=== PATIENT | female | born 1965 | race Hispanic/Latino ===

== ENCOUNTER 2020-05-20 15:37 | Emergency (ER) | payer SELFPAY ==
--- NOTE | 2020-05-20 16:05 | ED.PDOC ---
History of Present Illness - General Chief Complaint: GI Problem Stated Complaint: Fever Time Seen by Provider: 05/20/20 16:05 Information Source: patient, RN notes reviewed, Vital Signs reviewed Exam Limitations: language barrier - History of Present Illness Initial Comments: This is a 54-year-old female with history of UTI, type 2 diabetes, presenting to the emergency department with fever and dysuria for the past 3 days. She denies any vomiting or diarrhea. She denies any Covid contacts. She denies any cough, runny nose, sore throat, chest pain, or shortness of breath. Abdominal Pain Onset Location: suprapubic Review of Systems - Review of Systems Constitutional: States: fever. Denies: chills EENTM: Denies: tearing, ear pain, nose congestion, throat pain Respiratory: Denies: cough, orthopnea, short of breath, stridor, wheezing Cardiology: Denies: chest pain, edema, palpitations Gastrointestinal/Abdominal: Denies: abdominal pain, diarrhea, nausea, vomiting Genitourinary: States: discharge, dysuria, frequency Musculoskeletal: Denies: joint pain, joint swelling, muscle pain, muscle stiffness, neck pain Skin: Denies: dryness, lesions, rash Neurological: Denies: headache, paresthesia, tingling Family Medical History - Family History Mother Family History: Unknown Physical Exam - Physical Exam General Appearance: Alert, Comfortable Eyes, Ears, Nose, Throat Exam: PERRL/EOMI, normal ENT inspection Neck: non-tender, supple Respiratory: lungs clear, normal breath sounds, no respiratory distress, no accessory muscle use Cardiovascular/Chest: regular rate, rhythm, no edema, no gallop, no JVD, tachycardia Peripheral Pulses: 2+ Gastrointestinal/Abdominal: non tender, soft, no organomegaly Back Exam: normal inspection, no CVA tenderness, no vertebral tenderness Neurologic: no motor/sensory deficits, alert, normal mood/affect, oriented x 3 Skin Exam: normal color, warm/dry Progress - Progress Progress: 05/20/20 19:45 Rechecked. Discussed lab findings and plan for discharge. Heart rates down to the 80s, O2 sats normal. Patient feeling much better. she has been afebrile in the emergency department. Stressed importance of follow-up with PCP for ongoing maintenance of her diabetes. She states her blood sugars have been running in the 300s for several weeks now. Will start glipizide in addition to her Metformin and insulin. Strict warnings given to return the emergency room for chest pain, shortness of breath, intractable vomiting, or any other concerns DDx: Sepsis, UTI, pneumonia, dehydration MDM: Patient presenting with subjective fever, dysuria. She is type II diabetic and hyperglycemic today. UTI noted on UA. Urine culture is pending. Initially tachycardic, but her heart rate returned to normal with IV fluids. She has been afebrile. I do not feel she needs to be admitted to the hospital at this time given her clinical improvement. Will treat with p.o. antibiotics and add glipizide for improved glycemic control. Patient given referral to local PCP for ongoing management and observation of her diabetes. Strict warnings given to return the emergency room for worsening. Jimmie Tolentino DO [facility]#[id number] - Results/Orders Results/Orders: EKG reviewed personally by me at 1637. Sinus tach, rate of 110, normal axis, normal intervals, no ST segment elevations or depressions Laboratory Results - last 24 hr 05/20/20 05/20/20 05/20/20 16:27 16:27 16:27 WBC 11.8 H RBC 4.39 Hgb 11.8 L Hct 34.8 L MCV 79.2 L MCH 26.8 L MCHC 33.8 RDW 14.0 Plt Count 213 MPV 8.9 Absolute Neuts (auto) 10.70 H Absolute Lymphs (auto) 0.40 L Absolute Monos (auto) 0.70 Absolute Eos (auto) 0.00 Absolute Basos (auto) 0.00 Neutrophils % 90.4 H Lymphocytes % 3.7 L Monocytes % 5.5 Eosinophils % 0.1 L Basophils % 0.3 Sodium 128 L Potassium 3.9 Chloride 93 L Carbon Dioxide 22 Anion Gap 16.9 BUN 15 Creatinine 0.91 BUN/Creatinine Ratio 16.5 Random Glucose 367 H Serum Osmolality 272.8 L Lactic Acid 1.1 Calcium 8.7 Total Bilirubin 0.9 AST 16 ALT 17 Alkaline Phosphatase 95 Serum Total Protein 7.2 Albumin 3.6 Globulin 3.6 H Albumin/Globulin Ratio 1.0 L Urine Color Urine Appearance Urine pH Ur Specific [place] Urine Protein Urine Glucose (UA) Urine Ketones Urine Blood Urine Nitrite Urine Bilirubin Urine Urobilinogen Ur Leukocyte Esterase Urine RBC Urine WBC Ur Epithelial Cells Amorphous Sediment Urine Bacteria 10/24/20 10/24/20 17:12 18:29 WBC RBC Hgb Hct MCV MCH MCHC RDW Plt Count MPV Absolute Neuts (auto) Absolute Lymphs (auto) Absolute Monos (auto) Absolute Eos (auto) Absolute Basos (auto) Neutrophils % Lymphocytes % Monocytes % Eosinophils % Basophils % Sodium Potassium Chloride Carbon Dioxide Anion Gap BUN Creatinine BUN/Creatinine Ratio Random Glucose Serum Osmolality Lactic Acid 1.0 Calcium Total Bilirubin AST ALT Alkaline Phosphatase Serum Total Protein Albumin Globulin Albumin/Globulin Ratio Urine Color Yellow Urine Appearance Sl cloudy Urine pH 5.5 Ur Specific [place] 1.010 Urine Protein 30 Urine Glucose (UA) >=1000 H Urine Ketones Negative Urine Blood Small H Urine Nitrite Negative Urine Bilirubin Negative Urine Urobilinogen 1.0 Ur Leukocyte Esterase Large H Urine RBC 3-5 H Urine WBC 20-30 H Ur Epithelial Cells 3-5 Amorphous Sediment Trace Urine Bacteria 3+ H EXAM DESCRIPTION: Chest,1 View CLINICAL HISTORY: 54 years Female fever, possible sepsis COMPARISON: None. FINDINGS: Poor inspiratory effort. The cardiomediastinal silhouette appears unremarkable. There is mild opacity overlying the left mid and lower thorax likely from overlying soft tissues. No consolidating infiltrates or pleural effusions. No pneumothorax. IMPRESSION: Poor inspiratory effort. No definite acute abnormality is identified. PA and lateral chest x-ray could be obtained to better evaluate. Electronically signed by: Dmitry Herrera MD 05/20/2020 4:29 PM CDT Departure - Departure Clinical Impression: Urinary tract infection Qualifiers: Urinary tract infection type: acute cystitis Hematuria presence: without hematuria Qualified Code(s): N30.00 - Acute cystitis without hematuria Type II diabetes mellitus Qualifiers: Diabetes mellitus halfway insulin use: with halfway use Diabetes mellitus complication status: with hyperglycemia Qualified Code(s): E11.65 - Type 2 diabetes mellitus with hyperglycemia Disposition: Discharge to Home or Self Care Condition: Good Departure Forms: ED Discharge - Pt. Copy, Patient Portal Self Enrollment Instructions: Urinary Tract Infection, Adult (DC), Hyperglycemia, Adult (DC) Referrals: [facility]AB[facility] REF [Referring] - 1-5 Days Prescriptions: Cephalexin Monohydrate [Keflex] 500 mg PO Q12HR #10 cap Glipizide 5 mg PO DAILY #30 tab Lisinopril 20 mg PO DAILY #30 tab Home Medications: Ambulatory Orders Cephalexin Monohydrate [Keflex] 500 mg PO Q12HR #10 cap 05/20/20 Glipizide 5 mg PO DAILY #30 tab 05/20/20 Lisinopril 20 mg PO DAILY #30 tab 05/20/20 Print Language: SPA
[2020-05-20] MEDS ORDERED: SODIUM CHLORIDE 0.9% (FLUSH) 10 ML SYG IV PRN (16:11)
[2020-05-20] MEDS ORDERED: cefTRIAXone SODIUM 2 GM in SODIUM CHL 0.9% 100ML MINI-BAG 100 ML IVPB ONE (16:11)
[2020-05-20] MEDS ORDERED: SODIUM CHLORIDE 0.9% 1000ML 1,000 ML IVS ONE (16:11)
[2020-05-20] MEDS ORDERED: ACETAMINOPHEN 500 MG TAB PO ONE (16:11)
--- NOTE | 2020-05-20 16:31 | RAD ---
EXAM DESCRIPTION: Chest,1 View CLINICAL HISTORY: 54 years Female fever, possible sepsis COMPARISON: None. FINDINGS: Poor inspiratory effort. The cardiomediastinal silhouette appears unremarkable. There is mild opacity overlying the left mid and lower thorax likely from overlying soft tissues. No consolidating infiltrates or pleural effusions. No pneumothorax. IMPRESSION: Poor inspiratory effort. No definite acute abnormality is identified. PA and lateral chest x-ray could be obtained to better evaluate. Electronically signed by: Dmitry Hrerera MD 05/20/2020 4:29 PM CDT
[2020-05-20 21:36] VITALS: BP 120/69
[2020-05-20 21:38] VITALS: TEMP 97.1; O2SAT 98
== END 2020-05-20 20:10 | disposition home or self-care (01) ==
LOC: ER 15:37
DX: N30.00 Acute cystitis without hematuria (principal); E11.65 Type 2 diabetes mellitus with hyperglycemia; R00.0 Tachycardia, unspecified
CPT/HCPCS: 36415; 71045; 80053; 81001; 83605; 85025; 87040; 87086; 87088; 87186; 93005; A4216; J0696; J7030; J7050

== ENCOUNTER → 2020-05-24 | Outpatient (CLI) | payer SELFPAY | LOC: YCFC.O 09:11 | PROVIDERS: ATTEND Family Medicine | DX: E11.9 Type 2 diabetes mellitus without complications (principal); I10 Essential (primary) hypertension ==

== ENCOUNTER 2020-08-24 19:25 | Emergency (ER) | payer SELFPAY ==
[2020-08-24] MEDS ORDERED: ONDANSETRON INJ 4 MG/2 ML VIAL ONE (20:18)
[2020-08-24] MEDS ORDERED: SODIUM CHLORIDE 0.9% 1000ML 1,000 ML ONE (20:18)
[2020-08-24] MEDS ORDERED: MORPHINE SULFATE INJ 10 MG/ML VIAL IV ONE (20:28)
[2020-08-24] MEDS ORDERED: ONDANSETRON INJ 4 MG/2 ML VIAL IV ONE (20:28)
[2020-08-24] MEDS ORDERED: METOCLOPRAMIDE HCL INJ 10 MG/2 ML VIAL IV ONE (20:29)
--- NOTE | 2020-08-24 21:13 | ED.PDOC ---
History of Present Illness - General Chief Complaint: GI Problem Stated Complaint: vomiting Time Seen by Provider: 08/24/20 20:27 - History of Present Illness Initial Comments: Patient reports pain in the upper abdomenWith frequent nausea and vomiting without Diarrhea onset today. No chills or fever. No cough or upper respiratory symptoms. No recent travel. No known exposure to COVID-19. Timing/Duration: 24 hours Severity: severe Improving Factors: nothing Worsening Factors: nothing Associated Symptoms: denies symptoms Allergies/Adverse Reactions: Allergies NO KNOWN ALLERGY Allergy (Verified 05/20/20 19:12) Home Medications: Ambulatory Orders Lisinopril 20 mg PO DAILY #30 tab 05/20/20 Metformin HCl [Metformin Hydrochloride E] 1,000 mg PO BID 08/24/20 Omeprazole 20 mg PO DAILY 08/24/20 Ondansetron Odt [Zofran ODT] 4 mg PO Q6H PRN 5 Days #20 tab 08/24/20 Promethazine Supp [Phenergan Suppository] 25 mg CO Q6H PRN #12 sup 08/24/20 Review of Systems - Review of Systems Constitutional: States: no symptoms reported EENTM: States: no symptoms reported Respiratory: States: no symptoms reported Cardiology: States: no symptoms reported Gastrointestinal/Abdominal: States: see HPI Genitourinary: States: no symptoms reported Musculoskeletal: States: no symptoms reported Skin: States: no symptoms reported Neurological: States: no symptoms reported Endocrine: States: no symptoms reported All other Systems: Reviewed and Negative Past Medical History (General) - Patient Medical History Hx Congestive Heart Failure: No Family Medical History - Family History Mother Family History: Unknown Physical Exam - Physical Exam General Appearance: Alert, Other - Appears uncomfortable. Eye Exam: bilateral normal Ears, Nose, Throat: normal ENT inspection, other - Mucous membranes moist Neck: non-tender, full range of motion, supple Respiratory: chest non-tender, normal breath sounds Cardiovascular/Chest: regular rate, rhythm Gastrointestinal/Abdominal: tenderness - Diffusely in the epigastric area, moder ate, no rebound, other - Increased bowel sounds. 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 Zofran 4 mg, Reglan 10 mg and morphine 4 mg IV given. 08/24/20 22:06 Abdominal pain and vomiting have now subsided. Abdomen is soft and nontender. All diagnostic findings and treatment plan and need for follow-up were discussed with the patient by [place]-speaking nurse. Medical decision makin-year-old noncompliant diabetic female complaining of upper abdominal pain vomiting. Patient appears to have acute gastritis and likely gastroparesis. She does not appear to have a acute surgical abdomen. The patient is well hydrated and Free of active vomiting at this time. She has no laboratory findings to suggest impending diabetic ketoacidosis. Patient suitable for outpatient symptomatic management and follow-up with her primary neonatal critical care nurse or the emergency department should she acutely worsen. Famotidine 20 mg IV also given. 08/24/20 22:08 - Results/Orders Results/Orders: 08/24/20 20:28 URINALYSIS Stat 08/24/20 21:11 RAPID SARS-CoV-2 RNA Stat Laboratory Results - last 24 hr 08/24/20 08/24/20 08/24/20 20:36 20:36 20:36 WBC 8.9 RBC 4.96 Hgb 13.1 Hct 38.9 MCV 78.5 L MCH 26.4 L MCHC 33.6 RDW 15.2 H Plt Count 206 MPV 9.4 Absolute Neuts (auto) 7.90 H Absolute Lymphs (auto) 0.80 L Absolute Monos (auto) 0.20 Absolute Eos (auto) 0.00 Absolute Basos (auto) 0.00 Neutrophils % 88.2 H Lymphocytes % 9.4 L Monocytes % 2.3 Eosinophils % 0.0 L Basophils % 0.1 Sodium 135 Potassium 3.6 Chloride 98 L Carbon Dioxide 27 Anion Gap 13.6 BUN 15 Creatinine 0.65 BUN/Creatinine Ratio 23.1 H Random Glucose 290 H Serum Osmolality 281.6 Lactic Acid 1.4 Calcium 9.6 Total Bilirubin 1.0 AST 18 ALT 18 Alkaline Phosphatase 79 Serum Total Protein 7.8 Albumin 4.6 Globulin 3.2 Albumin/Globulin Ratio 1.4 Lipase 38 Serum Ketones Negative Vital Signs - 24 hr 08/24/20 08/24/20 08/24/20 20:15 21:00 22:00 Temperature 97.3 F L Pulse Rate [ 98 H 88 81 PULSE OX] Respiratory 18 18 18 Rate Blood Pressure 172/87 140/78 [Left Arm] O2 Sat by Pulse 97 98 100 Oximetry 08/24/20 23:00 Temperature 98.1 F Pulse Rate [ 87 PULSE OX] Respiratory 18 Rate Blood Pressure 137/85 [Left Arm] O2 Sat by Pulse 98 Oximetry Departure - Departure Clinical Impression: Vomiting, Diabetes ICD-10 Supporting Text: Intractable vomiting. Gastroparesis. Type 2 diabetes without DKA. Disposition: Discharge to Home or Self Care Condition: Good Departure Forms: ED Discharge - Pt. Copy, Patient Portal Self Enrollment Diet: other - Clear liquid diet, gradually advance as tolerated Prescriptions: Promethazine Supp [Phenergan Suppository] 25 mg CO Q6H PRN #12 sup PRN Reason: Vomiting Ondansetron Odt [Zofran ODT] 4 mg PO Q6H PRN 5 Days #20 tab PRN Reason: Vomiting Home Medications: Ambulatory Orders Lisinopril 20 mg PO DAILY #30 tab 05/20/20 Metformin HCl [Metformin Hydrochloride E] 1,000 mg PO BID 08/24/20 Omeprazole 20 mg PO DAILY 08/24/20 Ondansetron Odt [Zofran ODT] 4 mg PO Q6H PRN 5 Days #20 tab 08/24/20 Promethazine Supp [Phenergan Suppository] 25 mg CO Q6H PRN #12 sup 08/24/20 Additional Instructions: Check your blood sugar twice a day. If your blood sugar becomes very low or very high,Over 400 then return immediately to the emergency department.Return also for severe and increasing pain or high fever. Take [id number] Pepcid 20 mg twice a day for 1 week to reduce pain from stomach acid. See your doctor for further care.
[2020-08-24] MEDS ORDERED: FAMOTIDINE IV PREMIX 20 MG in PREMIX BAG 1 BAG IVPB ONE (22:08)
[2020-08-24 23:19] VITALS: BP 137/85; TEMP 98.1; O2SAT 98
[2020-08-24] MEDS ORDERED: SODIUM CHLORIDE 0.9% 1000ML 1,000 ML IVS ONE (23:22)
== END 2020-08-24 23:10 | disposition home or self-care (01) ==
LOC: ER 19:25
DX: R11.2 Nausea with vomiting, unspecified (principal); E11.9 Type 2 diabetes mellitus without complications; Z91.14 Patient's other noncompliance with medication regimen; Z79.84 Long term (current) use of oral hypoglycemic drugs; Z79.899 Other long term (current) drug therapy
CPT/HCPCS: 36415; 80053; 82009; 83605; 83690; 85025; J2270; J2405; J2765; J3490; J7030

== ENCOUNTER 2020-08-26 17:27 | Emergency (ER) | payer SELFPAY ==
[2020-08-26 17:41] VITALS: TEMP 99
[2020-08-26] MEDS ORDERED: ALUM & MAG HYDROX-SIMETHICONE 30 ML, LIDOCAINE VISCOUS 2% 15 ML PO ONE ×2 (17:44)
[2020-08-26] MEDS ORDERED: SODIUM CHLORIDE 0.9% 1000ML 1,000 ML IVS ONE (17:44)
[2020-08-26] MEDS ORDERED: SCOPOLAMINE PATCH 1.5MG 1 EA TD ONE (18:08)
[2020-08-26] MEDS ORDERED: PROMETHAZINE HCL INJ 25 MG in SODIUM CHLORIDE 0.9% 50ML 50 ML IVPB ONE (18:09)
--- NOTE | 2020-08-26 18:31 | RAD ---
XR ABDOMEN SUPINE AND ERECT WITH CHEST (ABD ACUTE SERIES) HISTORY: Abdominal pain. COMPARISON: None. FINDINGS: There is a nonobstructive bowel gas pattern. No evidence of pneumoperitoneum. No radiopaque urinary stones are seen. The visualized lungs are clear. IMPRESSION: Unremarkable bowel gas pattern. Electronically signed by: Onur Walker MD 08/26/2020 6:30 PM [employer]
[2020-08-26] MEDS ORDERED: INSULIN LISPRO 100 UNITS/ML PEN SUBCU ONE (18:43)
--- NOTE | 2020-08-26 19:55 | ED.PDOC ---
History of Present Illness - General Chief Complaint: GI Problem Stated Complaint: N/V, epigastric pain, URBINA and not eating well Time Seen by Provider: 08/26/20 17:34 Source: patient Exam Limitations: no limitations - History of Present Illness Initial Comments: The patient is a 55-year-old female presented emergency room for the second time in 3 days secondary to persistent nausea and vomiting. Symptoms again appear to be consistent with an acute gastritis. No vomiting of blood. No diarrhea at this point. No fever. She is having some symptoms of esophagitis at this point. Is a diabetic and blood sugar is little bit elevated. She is still taking Metformin. She does have a headache at this point. No syncope or near syncope. No rash. No lower abdominal pain. On exam pain is localized to the epigastric area. No right upper quadrant pain. No right lower quadrant pain. Timing/Duration: other - 4 days Severity: moderate Improving Factors: nothing Worsening Factors: eating Associated Symptoms: loss of appetite, malaise, nausea/vomiting Allergies/Adverse Reactions: Allergies NO KNOWN ALLERGY Allergy (Verified 05/20/20 19:12) Home Medications: Ambulatory Orders Lisinopril 20 mg PO DAILY #30 tab 05/20/20 Metformin HCl [Metformin Hydrochloride E] 1,000 mg PO BID 08/24/20 Omeprazole 20 mg PO DAILY 08/24/20 Ondansetron Odt [Zofran ODT] 4 mg PO Q6H PRN 5 Days #20 tab 08/24/20 Promethazine Supp [Phenergan Suppository] 25 mg OR Q6H PRN #12 sup 08/24/20 Glyburide 5 mg PO ACBK #30 tab 08/26/20 Sucralfate Tab [Carafate Tab] 1 gm PO QID #120 tab 08/26/20 Review of Systems - Review of Systems Constitutional: States: malaise EENTM: States: no symptoms reported Respiratory: States: no symptoms reported Cardiology: States: no symptoms reported Gastrointestinal/Abdominal: States: abdominal pain, nausea, vomiting Genitourinary: States: no symptoms reported Musculoskeletal: States: no symptoms reported Skin: States: no symptoms reported Neurological: States: headache Endocrine: States: no symptoms reported All other Systems: No Change from Baseline Past Medical History (General) - Patient Medical History Hx Stroke: No Hx of COPD: No Hx Cardiac Disorders: No Hx Congestive Heart Failure: No Hx Hypertension: Yes Hx Diabetes: Yes Hx Cancer: No Hx Hepatitis C: No Surgical History: cholecystectomy, Hysterectomy - Vaccination History Hx Tetanus, Diphtheria Vaccination: No Hx Influenza Vaccination: No Hx Pneumococcal Vaccination: No - Social History Hx Tobacco Use: No Hx Alcohol Use: No Hx Substance Use: No Hx Substance Use Treatment: No Hx Depression: No Hx Physical Abuse: No Hx Emotional Abuse: No Hx Suspected Abuse: No - Female History Patient is a Female of Child Bearing Age (10 -59 yrs old): Yes Patient : No - hyst Family Medical History - Family History Mother Family History: Unknown Physical Exam - Physical Exam General Appearance: Alert, Other - Uncomfortable Eye Exam: bilateral normal Ears, Nose, Throat: hearing grossly normal, normal pharynx Neck: full range of motion, supple Respiratory: lungs clear, normal breath sounds, no respiratory distress, no accessory muscle use Cardiovascular/Chest: normal peripheral pulses, regular rate, rhythm, no edema Peripheral Pulses: radial,right: 2+, radial,left: 2+ Gastrointestinal/Abdominal: soft, other - Epigastric discomfort to palpation. No true rebound or peritoneal signs. No palpable mass. No pain in the right upper or lower quadrants. 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 Again, work-up and clinical exam seem to point to a significant gastritis. The patient needs to stop taking the Metformin. We will write her glyburide instead to take in hopes of reducing gastric irritation and still controlled blood sugars. She does need to follow her blood sugars closely. She is using some insulin now to help control her blood sugars as well. The patient is to continue her omeprazole that she was written for 2 days ago. Additionally she can continue to use the promethazine and Zofran that she was written for 2 days ago. We are going to add Carafate 4 times daily for the next 2 weeks. Additionally she needs to brick picker liquid Maalox or liquid Mylanta to keep with her and take on an as-needed basis. She needs to keep her self well-hydrated. She does have a scopolamine patch in place which can be left in place for up to 3 days to help reduce nausea. Obviously she needs to avoid nicotine, caffeine or alcohol. She needs to avoid hot or spicy foods. She needs to avoid greasy foods. She needs to avoid large meals. She did receive a liter of IV fluids here for mild dehydration. She does appear to be doing much better at this point. ER warnings are given for any significant worsening. Follow-up with primary care doctor next week. reta koch [id number] - Results/Orders Results/Orders: Acute abdominal series is negative. EKG shows normal sinus rhythm at 92 bpm. Normal axis. Normal R wave progression. No ST or T wave changes indicative of acute ischemia. Normal QT interval. Laboratory Tests 08/26/20 08/26/20 08/26/20 17:56 17:56 17:56 WBC 10.6 RBC 5.27 Hgb 13.8 Hct 41.1 MCV 78.0 L MCH 26.2 L MCHC 33.6 RDW 15.0 H Plt Count 215 MPV 8.8 Absolute Neuts (auto) 9.30 H Absolute Lymphs (auto) 0.80 L Absolute Monos (auto) 0.50 Absolute Eos (auto) 0.00 Absolute Basos (auto) 0.00 Neutrophils % 87.5 H Lymphocytes % 7.4 L Monocytes % 4.8 Eosinophils % 0.0 L Basophils % 0.3 Sodium 133 L Potassium 3.8 Chloride 96 L Carbon Dioxide 24 Anion Gap 16.8 BUN 15 Creatinine 0.74 BUN/Creatinine Ratio 20.3 H Random Glucose 247 H Serum Osmolality 275.5 Lactic Acid 1.5 Calcium 9.6 Magnesium 1.7 L Total Bilirubin 1.2 H AST 18 ALT 20 Alkaline Phosphatase 89 Creatine Kinase 89 CK-MB (CK-2) 0.7 CK-MB (CK-2) % Not Reportable Troponin I < 0.02 Serum Total Protein 8.2 Albumin 4.4 Globulin 3.8 H Albumin/Globulin Ratio 1.2 Amylase 68 Lipase 26 D TSH 0.74 Departure - Departure Clinical Impression: Mild dehydration, Hyperglycemia Acute gastritis Qualifiers: Gastritis type: unspecified gastritis Gastritis bleeding: without bleeding Qualified Code(s): K29.00 - Acute gastritis without bleeding Disposition: Discharge to Home or Self Care Condition: Fair Departure Forms: ED Discharge - Pt. Copy, Patient Portal Self Enrollment Instructions: Gastritis (DC) Diet: bland diet, diabetic diet Activity: increase activity as tolerated Prescriptions: Sucralfate Tab [Carafate Tab] 1 gm PO QID #120 tab Glyburide 5 mg PO ACBK #30 tab Home Medications: Ambulatory Orders Lisinopril 20 mg PO DAILY #30 tab 05/20/20 Metformin HCl [Metformin Hydrochloride E] 1,000 mg PO BID 08/24/20 Omeprazole 20 mg PO DAILY 08/24/20 Ondansetron Odt [Zofran ODT] 4 mg PO Q6H PRN 5 Days #20 tab 08/24/20 Promethazine Supp [Phenergan Suppository] 25 mg OR Q6H PRN #12 sup 08/24/20 Glyburide 5 mg PO ACBK #30 tab 08/26/20 Sucralfate Tab [Carafate Tab] 1 gm PO QID #120 tab 08/26/20 Additional Instructions: The patient is a 55-year-old female presented to emergency room secondary to nausea and vomiting about 4 days duration. Again, work-up and clinical exam seem to point to a significant gastritis. The patient needs to stop taking the Metformin. We will write her glyburide instead to take in hopes of reducing gastric irritation and still controlled blood sugars. She does need to follow her blood sugars closely. She is using some insulin now to help control her blood sugars as well. The patient is to continue her omeprazole that she was written for 2 days ago. Additionally she can continue to use the promethazine and Zofran that she was written for 2 days ago. We are going to add Carafate 4 times daily for the next 2 weeks. Additionally she needs to brick picker liquid Maalox or liquid Mylanta to keep with her and take on an as-needed basis. She needs to keep her self well-hydrated. She does have a scopolamine patch in place which can be left in place for up to 3 days to help reduce nausea. Obviously she needs to avoid nicotine, caffeine or alcohol. She needs to avoid hot or spicy foods. She needs to avoid greasy foods. She needs to avoid large meals. She did receive a liter of IV fluids here for mild dehydration. She does appear to be doing much better at this point. ER warnings are given for any significant worsening. Follow-up with primary care doctor next week. Print Language: [place]
[2020-08-26 20:10] VITALS: BP 148/80; O2SAT 96
== END 2020-08-26 20:11 | disposition home or self-care (01) ==
LOC: ER 17:27
DX: K29.00 Acute gastritis without bleeding (principal); E86.0 Dehydration; E11.65 Type 2 diabetes mellitus with hyperglycemia; I10 Essential (primary) hypertension; Z90.49 Acquired absence of other specified parts of digestive tract; Z79.899 Other long term (current) drug therapy; Z79.84 Long term (current) use of oral hypoglycemic drugs
CPT/HCPCS: 36415; 74019; 80053; 82150; 82550; 82553; 83605; 83690; 83735; 84443; 84484; 85025; 93005; A4216; J1815; J2550; J7030